=== PATIENT | male | born 1965 | race Caucasian/White ===

== ENCOUNTER → 2020-08-06 13:12 | Outpatient (CLI) | payer OTHER, SELFPAY ==
--- NOTE | ~2020-08-06 | XR_ITS ---
XR foot RT standing 2V DATE: 08/06/2020 14:39 INDICATION: Psoriasis TECHNIQUE: Weightbearing AP and lateral views COMPARISON: None FINDINGS: No fracture, dislocation, periosteal reaction or bone destruction. Joint spaces are preserv ed. No erosive changes. IMPRESSION: Negative Reviewed, dictated and finalized at location A. IMPRESSION: Negative
--- NOTE | ~2020-08-06 | XR_ITS ---
EXAMINATION: XR knee LT 3V DATE: 08/06/2020 14:39 INDICATION: Arthropathic psoriasis. TECHNIQUE: 3 views of left knee were obtained. COMPARISON: None. FINDINGS: Bone alignment is normal. No fracture. There is moderate osteoarthritis of medial compartme nt and mild osteoarthritis of lateral and patellofemoral compartments. There is chondrocalcinosis of the menisci. There is a small knee joint effusion. IMPRESSION: 1. Moderate left knee osteoarthritis. 2. Small left knee joint effusion. Reviewed, dictated and finalized at location A.
--- NOTE | ~2020-08-06 | XR_ITS ---
XR hand BI arthritis min 3V DATE: 08/06/2020 14:39 INDICATION: Pain. Osteoarthritis. TECHNIQUE: 4 views of each hand COMPARISON: None FINDINGS: Right hand: There is chondrocalcinosis and mild widening at the scapholunate joint of the right wrist . There is slight periarticular spurring consistent with minimal osteoarthritis at the right third meta carpophalangeal joint. Left hand: No fracture, dislocation, periosteal reaction or bone destruction, chondrocalcinosis or ot her significant bony or soft tissue abnormality. Joint spaces are preserved. IMPRESSION: Asymmetric widening and chondrocalcinosis at the right scapholunate joint Slight osteoarthritis at the right third metacarpophalangeal joint Reviewed, dictated and finalized at location A.
--- NOTE | ~2020-08-06 | XR_ITS ---
XR sacroiliac joints min 3V DATE: 08/06/2020 14:39 INDICATION: Psoriasis TECHNIQUE: Multiple views COMPARISON: None FINDINGS: Levoscoliosis and multilevel degenerative disc disease of the lumbar spine. The sacroiliac joints appear normal. No erosion, ankylosis. IMPRESSION: Negative sacroiliac joints Levoscoliosis and multilevel degenerative disc disease of the lumbar spine Reviewed, dictated and finalized at Location A. Reviewed, dictated and finalized at location A.
--- NOTE | ~2020-08-06 | XR_ITS ---
XR lumbar spine min 4V DATE: 08/06/2020 14:39 INDICATION: Psoriasis TECHNIQUE: AP, lateral, bilateral oblique views, coned lateral lumbosacral views COMPARISON: None FINDINGS: Minimal levoscoliosis of the lumbar spine. Normal alignment of the lumbar vertebrae. Lumbar pedicles are intact. No fracture or bone destruction, spondylolysis or spondylolisthesis is ev ident. There is degenerative disc disease of the lumbar spine, moderately severe at all levels except modera te degenerative disease at L3-4. The sacroiliac joints appear normal. IMPRESSION: Minimal levoscoliosis Multilevel degenerative disc disease Reviewed, dictated and finalized at location A.
--- NOTE | ~2020-08-06 | XR_ITS ---
EXAMINATION: XR elbow RT min 3V DATE: 08/06/2020 14:40 INDICATION: Arthropathic psoriasis. TECHNIQUE: 4 views of right elbow were obtained. COMPARISON: None. FINDINGS: Bone alignment is normal. No fracture. There is mild elbow joint osteoarthritis. No elbow j oint effusion. There is an enthesophyte at olecranon with overlying soft tissue swelling. IMPRESSION: 1. Mild elbow joint osteoarthritis. 2. Mild olecranon bursitis. Reviewed, dictated and finalized at location A.
--- NOTE | ~2020-08-06 | XR_ITS ---
XR foot LT standing 2V DATE: 08/06/2020 14:39 INDICATION: Psoriasis TECHNIQUE: Weightbearing AP and lateral views COMPARISON: None FINDINGS: There is minimal posterior calcaneal enthesopathy. No fracture or dislocation, periosteal reaction or bone destruction. Joint spaces are preserved. IMPRESSION: Minimal posterior calcaneal enthesopathy Reviewed, dictated and finalized at location A.
--- NOTE | ~2020-08-06 | XR_ITS ---
EXAMINATION: XR elbow LT min 3V DATE: 08/06/2020 14:40 INDICATION: Arthropathic psoriasis. TECHNIQUE: 4 views of left elbow were obtained. COMPARISON: None. FINDINGS: Bone alignment is normal. No fracture. There is mild elbow joint osteoarthritis. There is m ild enthesophyte at olecranon. There is mild soft tissue swelling overlying olecranon. There is an el bow joint effusion. IMPRESSION: 1. Mild elbow joint osteoarthritis. 2. Elbow joint effusion. 3. Mild olecranon bursitis. Reviewed, dictated and finalized at location A.
--- NOTE | ~2020-08-06 | XR_ITS ---
EXAMINATION: XR knee RT 3V DATE: 08/06/2020 14:39 INDICATION: Arthropathic psoriasis. TECHNIQUE: 3 views of right knee were obtained. COMPARISON: None. FINDINGS: Bone alignment is normal. No fracture. There is mild tricompartmental osteoarthritis. No kn ee joint effusion. IMPRESSION: 1. Mild right knee osteoarthritis. Reviewed, dictated and finalized at location A.
== END ==
PROVIDERS: PCP Registered Nurse; Visit Provider Internal Medicine
DX: L40.50 Arthropathic psoriasis, unspecified (principal); M25.551 Pain in right hip; M25.552 Pain in left hip; Z11.59 Encounter for screening for other viral diseases; M51.36 Other intervertebral disc degeneration, lumbar region; M19.021 Primary osteoarthritis, right elbow; M70.21 Olecranon bursitis, right elbow; M19.022 Primary osteoarthritis, left elbow; M25.422 Effusion, left elbow; M70.22 Olecranon bursitis, left elbow; M17.0 Bilateral primary osteoarthritis of knee; M25.462 Effusion, left knee
CPT/HCPCS: 72110; 72202; 73080; 73130; 73562; 73620

== ENCOUNTER → 2020-08-25 12:03 | Outpatient (CLI) | payer OTHER, SELFPAY ==
--- NOTE | ~2020-08-25 | MR_ITS ---
EXAMINATION: MRI SACRUM W/O CONTRAST DATE: 08/25/2020 13:26 INDICATION: Arthropathic psoriasis presenting with chronic worsening low back and bilateral hip pain TECHNIQUE: Magnetic resonance imaging (MRI) of the sacral iliac joints was performed without and with 20 mL Multihance intravenous contrast. Sequences included sagittal PD-weighted FSE; oblique axial T 1-weighted FSE, T2-weighted FS FSE and T1-weighted FS FSE; oblique coronal T1-weighted FSE and T2-donte ghted FS FSE; post contrast axial and coronal T1-weighted FS FSE. COMPARISON: Radiographs dated 08/06/2020 FINDINGS: Moderate disc height loss at both L4-L5 and L5-S1. Disc bulges with annular fissures at both levels. This results in mild central canal stenosis at L4-L5 and mild bilateral neural foraminal stenosis at both L4-L5 and L5-S1. Mild thoracic degenerative endplate changes at the left side of the L5-S1 disc space. Marrow signal is otherwise normal throughout. Bilateral sacral iliac joint spaces are normal w ith no erosions, subarticular sclerosis, joint effusion or enhancing synovitis. Minimal facet osteoar thritis bilaterally at L4-5 and L5-S1. Mild bilateral hip osteoarthritis with subarticular cystic nery nge at the posterior inferior aspect of the left femoral head. Mild diverticulosis along the sigmoid colon without adjacent inflammatory change to suggest diverticulitis. Bladder and prostate are unrema rkable. No free fluid or pathologically enlarged lymphadenopathy in the visualized pelvis. IMPRESSION: 1. Normal bilateral sacroiliac joints. 2. Moderate lower lumbar spondylosis. Reviewed, dictated and finalized at location A.
[2020-08-25 12:47] LABS: Estimated Glomerular Filt Rate > 60
== END ==
PROVIDERS: PCP Registered Nurse; Visit Provider Internal Medicine
DX: L40.50 Arthropathic psoriasis, unspecified (principal); M25.551 Pain in right hip; M25.552 Pain in left hip; Z11.59 Encounter for screening for other viral diseases; M47.896 Other spondylosis, lumbar region
CPT/HCPCS: 72197; A9577

== ENCOUNTER 2024-05-28 08:42 | Outpatient (RCR) | payer OTHER, SELFPAY ==
--- NOTE | 2024-05-28 09:44 | OPREHPOC ---
Outpatient Therapy Plan of Care This is a Multidisciplinary Plan of Care that may contain components documented by all disciplines (PT, OT, and ST.) PT Problem 1 PT Problem #1 Knowledge Deficit PT Goal 1 Goal / Goal Update *indep with HEP on land and aquatic Target Visit 8 PT Problem 2 PT Problem #2 Impaired Flexibility PT Goal 1 Goal / Goal Update *increase hamstring length, to decrease strain over L knee and hip: supine SLR to 45' Target Visit 8 PT Goal 2 Goal / Goal Update * L knee flexion to 110' without an increase in pain reported Target Visit 8 PT Problem 3 PT Problem #3 Impaired Strength PT Goal 1 Goal / Goal Update * increase strength of L hip and knee, to improve stability to knee joint: 1* single leg standing 30 seconds with good stability 2* mat strengthening exercises 15 reps with 3# ankle wt Target Visit 8
--- NOTE | 2024-05-28 09:44 | PTOPEVAL1 ---
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 His medical history includes: L knee arthroscopy low back pain with herniated discs, bilateral hip and knee pain. He is going to have L shoulder surgery on July 04. 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 He rides a recumbent bicycle, but does not do any other exercises for his legs. With the evaluation: he has decreased L knee flexion ROM with increased pain; decreased strength of L hip and knee;hamstring tightness. Skilled PT services are indicated for modalities to decrease knee pain, therapeutic exercises-on land and in the water, to increase L hip and knee strength and increase hamstring flexibility, with education for HEP and pain control. Plan of Care Interventions Aquatic Therapy,Electrical Stimulation,Hot Pack/ Cold Pack,Manual Therapy,Neuro Re-education, Patient/Caregiver Education,Therapeutic Activities ,Therapeutic Exercise,Ultrasound,Other Other Interventions taping PT Services Indicated Yes Treatment Frequency and 1-2x/wk for 8 visits Duration These treatments will address the objective and functional deficits as defined above. The patient will be advanced safely and appropriately in order for the patient to progress towards his/her prior level of function. Additional exercises will be introduced and as well as a comprehensive home exercise program upon discharge, if needed, ?to ensure carryover of functional gains achieved in the clinic. This treatment plan has been reviewed and agreement upon by the patient.
--- NOTE | 2024-06-10 15:37 | PTOPDC ---
Assessment and note entered by Ana Choe, PT Assessment Status Discharge - Pt Not Present ICD-10 Condition Codes (PT) Pain in left knee M25.562 Other ICD-10 Condition Codes ( OA L knee M17.12 PT) Onset November 2023 Subjective Information pt called and canceled PT; stated he was going to have surgery on his knee. Assessment PT Clinical Summary Brett received the PT evaluation on May 28. He then called and canceled therapy due to being scheduled for surgery. Discharge PT. The goals were not assessed. Plan of Care PT Services Indicated No
== END 2024-06-11 08:27 | disposition home or self-care (01) ==
LOC: ANHPT 08:42
PROVIDERS: PCP Registered Nurse; Visit Provider Physical Therapist
DX: M17.12 Unilateral primary osteoarthritis, left knee (principal)
CPT/HCPCS: 97110; 97161; 97530